=== PATIENT | female | born 1930 | race Caucasian/White ===

== ENCOUNTER 2016-07-25 13:30 | Inpatient (IN) | payer MEDICARE, MEDICAID ==
[~2016-07-25] VITALS: Ht 157.5 cm; Wt 71.2 kg
--- NOTE | ~2016-07-25 | DS ---
PATIENT'S NAME: JUANA BOSE [facility] AGE: 85 Y [address] ROOM: [id number] [place], [place] [address] LOCATION: [facility] ADMIT DATE: 07/25/2016 Discharge Summary DISCHARGE DATE: 07/30/2016 FAMILY PHYSICIAN: Neo Gallo MD ATTENDING PHYSICIAN: Luis Vargas HOSPITAL COURSE: Ms. Bose was admitted with a left hip displaced femoral neck fracture. She was medically optimized, taken to the operating room, and had a hemiarthroplasty. No complications. Preoperatively, was noted to have a foot drop. There was some talk that maybe she had some weakness to the foot prior to surgery. 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 The sciatic nerve was identified during the procedure and protected throughout the procedure. Was fitted with an ankle-foot orthosis. Wound was intact. Mobilized, but made slow progress. Ready for transfer to [facility] bed on the . Regular diet. Activity, up with full weight bear with hip precautions. Wear her ankle-foot orthosis when up. Mepilex dressing change once a week. Discharge medicines include: 1. Cordarone. 2. Toprol. 3. Norvasc. 4. Coumadin. 5. Lovenox until the Coumadin is therapeutic. 6. Levothroid. 7. Levalbuterol. 8. Tylenol. 9. Marana. 10. Dulcolax. 11. Milk of magnesia. 12. Multivitamin. 13. Aspirin. 14. Oyster shell. 15. Calcium. 16. Symbicort. 17. Vitamin D3. 18. Hyzaar. Scheduled to follow up with Dr. Vargas on August 18, 2016, at 1:15 p.m. X-rays have been ordered at the [facility] [place] at noon, AP of the pelvis. Dr. Gallo, her family physician, will manage her transition back to Coumadin and will stop the Lovenox when the Coumadin is therapeutic. LUIS VARGAS MD PATIENT'S NAME: JUANA BOSE [facility] AGE: 85 Y [address] ROOM: [address] [address] LOCATION: [facility] ADMIT DATE: 07/25/2016 Discharge Summary DISCHARGE DATE: 07/30/2016 FAMILY PHYSICIAN: Neo Gallo MD ATTENDING PHYSICIAN: Luis Vargas DPM/ling /[id number] d: 07/30/16 1726 t: 08/03/16 2149, DISCHARGE SUMMARY
--- NOTE | ~2016-07-25 | OR ---
PATIENT'S NAME: JUANA BOSE [facility] AGE: 85 Y [address] ROOM: [address] [address] LOCATION: [facility] ADMIT DATE: 07/25/2016 OR/Procedure Report DISCHARGE DATE: FAMILY PHYSICIAN: PHYSICIAN, UNKNOWN ATTENDING PHYSICIAN: Luis Rebolledo SURGEON: Luis Rebolledo MD REVIT DRAFTER: DATE OF PROCEDURE: 07/26/2016 DIAGNOSIS: Left hip displaced femoral neck fracture. PROCEDURE: Left hip hemiarthroplasty. ANESTHESIA: General. INDICATION: Ms. Bose is an 85-year-old white female on Coumadin, fall at home, left hip displaced femoral neck fracture, known osteoporosis, was medically optimized and anticoagulation was reversed, taken to the operating room. When stabilized, was having no symptoms about the hip prior to the injury, minimal osteoarthritic changes. Risks, benefits, and alternatives have all been discussed. DESCRIPTION OF PROCEDURE: Ms Bose was taken to the operating room, 2 g Kefzol given intravenously for prophylaxis. General anesthetic via endotracheal tube. Turned to the right lateral decubitus position on the PEG board. All pressure points were carefully checked and padded. The left hip and lower extremity were prepared with ChloraPrep and draped sterilely. A 10 cm posterior lateral incision was made. Dissection through subcutaneous tissue to the fascia. Iliotibial band was opened over the greater trochanter. Interval in the gluteus muscle was identified and divided through the gluteal fascia. Gluteal muscles were retracted. The piriformis and short rotators were identified, elevated from the capsule. Each was divided and tagged. Retracted to protect the sciatic nerve. Capsule was T'd. Femoral neck fracture hematoma was drained. Femoral neck was cut 1 cm above the lesser trochanter, 45-degree angle to the shaft and 15 degrees of anteversion. Head was removed from the acetabulum, minimal osteoarthritic changes, sized to a 43. Cookie cutter was used for a lateral entry point. The canal finder was advanced. Using the Angeles press-fit system, broaches were advanced to the 12. Standard length neck with a 43 mm head was a good fit, very stable. Trial components removed. Permanent implants after irrigation were inserted. A Angeles 12 stem standard offset, standard neck with 43 mm head. Hip was located, stable, well-balanced, capsule closed with #1 Ethibond, gluteal fascia closed with #1 Vicryl. Subcutaneous tissues closed with multiple layers, first 0 Vicryl, then 2-0 Vicryl, and then doug. Mepilex dressing was placed. Procedure was done without complication. PATIENT'S NAME: JUANA BOSE [facility] AGE: 85 Y [address] ROOM: [place] [address] LOCATION: [facility] ADMIT DATE: 07/25/2016 OR/Procedure Report DISCHARGE DATE: FAMILY PHYSICIAN: PHYSICIAN, UNKNOWN ATTENDING PHYSICIAN: Luis Rebolledo ESTIMATED BLOOD LOSS: From the procedure was 200 mL. FINDINGS: Very osteoporotic bone. Since the bone was markedly osteoporotic, sample was sent to rule out any unrecognized cancer. LUIS REBOLLEDO MD DPM/modl /[id number] d: 07/26/16 1720 t: 07/28/16 1656, OPERATIVE SUMMARY
--- NOTE | ~2016-07-25 | CON ---
[facility] NAME: [facility] AGE: 85 Y [address] ROOM: [place] [address] LOCATION: [facility] ADMIT DATE: 07/25/2016 Consultation DISCHARGE DATE: FAMILY PHYSICIAN: PHYSICIAN, UNKNOWN ATTENDING PHYSICIAN: Luis Rebolledo CHIEF COMPLAINT: Left hip pain status post mechanical fall. HISTORY OF PRESENT ILLNESS: This is an 85-year-old female who is a resident of assisted living facility. The story is that the patient usually ambulates with a walker, but today around 10:30 a.m. when her daughter came by to pick her up, she forgot to use a walker while she was walking on the standing position, her daughter was speaking to her, so she turned her head to look at her and then she lost her balance and she fell down on the ground. She fell from the standing position and she sat on the ground. After the fall, the patient complained of left hip and back pain. The daughter called the ambulance. The patient was brought to the emergency room at [facility] and over there, the patient had imaging test done with x-ray showed left hip comminuted and mildly displaced fracture of the left hip. The patient was transferred here for a surgical care. The patient at baseline is an active female. Her METS score is more than 4. The patient usually ambulates with walker and she denies any chest pain or shortness of breath, both at exertion or at rest. The patient has never had myocardial infarction or had a heart failure either. She also denies any palpitation or chest pain or shortness of breath or cough. REVIEW OF SYSTEMS: As mentioned in the history of present illness. All other systems were reviewed and that were negative except those mentioned in the history of present illness. PAST MEDICAL HISTORY: According to the patient by looking at her medication: 1. Hypothyroidism. 2. Hypertension. 3. Osteoarthritis. 4. 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 5. Paroxysmal atrial fibrillation, on Coumadin, beta amy and amiodarone. ALLERGIES: NO KNOWN DRUG ALLERGIES ACCORDING TO THE PATIENT. HOME MEDICATIONS: PATIENT'S NAME: [facility] AGE: 85 Y [address] ROOM: [place] [address] LOCATION: [facility] ADMIT DATE: 07/25/2016 Consultation DISCHARGE DATE: FAMILY PHYSICIAN: PHYSICIAN, UNKNOWN ATTENDING PHYSICIAN: Luis Rebolledo 1. Levothyroxine 100 mg p.o. daily. 2. Losartan and hydrochlorothiazide 100/12.5 mg one tablet p.o. daily. 3. Toprol-XL 50 mg p.o. daily. 4. Multivitamin 1 tablet p.o. daily. 5. MiraLax 17 g p.o. daily. 6. Artificial Tears 1 drop each eye 3 times daily. 7. Coumadin 4 mg on Thursday, Thursday, , and Thursday. 8. Tylenol 650 mg p.o. every 6 hours p.r.n. for pain or fever. 9. Amiodarone 100 mg p.o. daily. 10. Amlodipine 5 mg p.o. daily. 11. Aspirin 81 mg p.o. daily. 12. Symbicort 160/4.5 mcg 2 puffs inhalation twice daily. 13. Calcium carbonate and vitamin D3 three tablets p.o. b.i.d. 14. Vitamin D3 1000 units p.o. daily. 15. Coumadin 2 mg p.o. on Thursday, Thursday, and Thursday. SOCIAL HISTORY: The patient denies any alcohol, cigarette or illegal drug use. PAST SURGICAL HISTORY: 1. Status post right hammertoe surgery in the past. 2. Status post appendectomy. 3. Status post tubal ligation bilaterally. FAMILY HISTORY: Mother has had asthma and from old age that she could not remember from what cause. Father had diabetes and also had a stroke and also at old age that from what cause that she could not remember. PHYSICAL EXAMINATION: VITAL SIGNS: At the time of my dictation; temperature 98.3, heart rate 64, respirations 16, blood pressure 140/99, saturation 94% on 2 L nasal cannula. GENERAL APPEARANCE: Alert and oriented x3, in no acute distress. HEENT: Pupils equally round and reactive to light. Extraocular muscles intact. Anicteric sclerae. Nasal turbinates are normal bilaterally. Moist oral mucosa. NECK: No JVD. CARDIOVASCULAR: Regular rate and rhythm. No murmur. No rubs. No gallops. RESPIRATORY: No rhonchi. No wheezing. No rales. No crackles. Lungs are clear to auscultation. ABDOMEN: Soft, nontender, nondistended, bowel sounds are present, no hepatosplenomegaly, nondistended, and soft. EXTREMITIES: +1 bilateral trace pitting edema which is chronic for the patient unchanged. Dorsalis pedis pulse and posterior tibialis pulses +2 bilaterally present. PATIENT'S NAME: JUANA BOSE [facility] AGE: 85 Y [address] ROOM: [place] [address] LOCATION: [facility] [facility] ADMIT DATE: 07/25/2016 Consultation DISCHARGE DATE: FAMILY PHYSICIAN: PHYSICIAN, UNKNOWN ATTENDING PHYSICIAN: Luis Rebolledo NEUROLOGIC: Grossly nonfocal. Sensation intact. SKIN: No ulcer. No rash. No cyanosis. LABORATORY DATA: CPK 32, troponin less than 0.04. ProBNP 548, white blood cells 13.5, hemoglobin 13.3, hematocrit 38.8, MCV 96.5, platelet 228, glucose 136, BUN 10, creatinine 0.8. Sodium 137, potassium 3.7, chloride 100, CO2 25, calcium 8.6, magnesium 1.8, GFR more than 60, albumin 3.3, phosphorus 3.2. INR 1.6. Urinalysis negative for UTI. CK-MB 0.6. Prealbumin 27. IMAGES: Chest x-ray on admission, the official reading is pending based on my review, no obvious gross abnormality. EKG on admission done on 07/25/2016 at 1736 hours showed sinus rhythm, heart rate 64, FL 177 milliseconds, QRS 103 milliseconds, QTc 374 milliseconds. No acute ischemic changes. No T-wave inversion. X-ray of the hip from the outside facility based on their report showed left comminuted mildly displaced fracture of the femoral neck. ASSESSMENT AND PLAN: 1. Regarding her left hip comminuted and displaced femoral neck fracture status post fall. Defer to orthopedic surgery. 2. Regarding her preoperative evaluation of noncardiac surgery. Orthopedic surgery is considered as an intermediate risk surgery. Currently from the guideline of the preoperative evaluation for noncardiac surgery, the patient does not require additional study at the moment. However, given that the patient has probable history of asthma, but the patient was not sure, I will give her nebulization with the Xopenex plus Atrovent q.6 hours while awake and Atrovent q.2 hours p.r.n. titrate by RT. I will also use incentive spirometry 10 times per hour while awake. 3. For her history of paroxysmal atrial fibrillation. Currently in sinus rhythm. The INR is 1.6. The goal will be to keep it below 1.5 for the surgery. Therefore, I will give her 1 dose of p.o. vitamin K and also 1 unit of fresh frozen plasma right now. The patient already took the Coumadin this morning of 2 mg that is why I am giving her the vitamin K to reverse it. I will check her INR again in the morning. If she would require more correction, we can give her fresh frozen plasma at that time as well. As mentioned before per guideline, there is no active contraindication currently to prevent her from undergoing the orthopedic Surgery. However, given her age and her history of probable asthma, I explained to the family that she is at moderate to high pulmonary postop PATIENT'S NAME: JUANA BOSE [facility] AGE: 85 Y [address] ROOM: [address] [address] LOCATION: [facility] [place] ADMIT DATE: 07/25/2016 Consultation DISCHARGE DATE: FAMILY PHYSICIAN: PHYSICIAN, UNKNOWN ATTENDING PHYSICIAN: Luis Rebolledo complication including that she might have a hard time to be extubated and she may remain intubated if necessary for a few days until she can be extubated. I will continue right now with nebulization and also encourage incentive spirometry. Currently, her lungs are clear. Family understands of potential complication. No need for antibiotics. I will also keep her potassium more than 4 and magnesium more than 2 given her history of paroxysmal atrial fibrillation. I will replace with one dose of potassium chloride 40 mEq and also one dose of IV magnesium 1 g. N.p.o. after midnight and IV fluids running at D5 normal saline at 50 mL/h for maintenance. Pain control with IV morphine p.r.n. and p.o. [place] p.r.n. and IV Dilaudid p.r.n. I will also check a TSH to see her levothyroxine dose should be adjusted or not. Further plan depends on clinical course. 4. Continue telemetry monitoring. Continue amiodarone. Hold the Coumadin obviously in anticipation for surgery. 5. Regarding her hypothyroidism. We will check a TSH to see if her home dose of levothyroxine should be adjusted. 6. Regarding her hypertension. I will hold the blood pressure medication for now in anticipation for surgery to prevent hypotension. I will continue the amiodarone for her history of paroxysmal atrial fibrillation. Time spent in care on the day of consultation 45 minutes including chart review, interviewing the patient, examining the patient, addressing all the question and concern that the patient had, I also went over the plan of care and answered all the questions that the family member had. Half of the total time spent was in counseling and going over the plan of care with the patient and her family members. The other half of the total time spent was in patient care, in interview, examination, and the chart review. MD DIGNA WOLFF/ling /[id number] d: 07/26/16 0224 t: 08/05/16 0659, CONSULTATION REPORT
--- NOTE | ~2016-07-25 | HP ---
PATIENT'S NAME: JUICE [facility] AGE: 85 Y [address] ROOM: [place] [id number] LOCATION: [facility] [place] ADMIT DATE: 07/25/2016 History & Physical DISCHARGE DATE: FAMILY PHYSICIAN: PHYSICIAN, UNKNOWN ATTENDING PHYSICIAN: Rima Rebolledo DATE OF SERVICE: 07/25/2016 DATE AND TIME OF EVALUATION: 07/25/2016 at 5:30 p.m. HISTORY OF PRESENT ILLNESS: Ms. Negro is an 85-year-old, white female. She fell this morning. No syncope, injured her left hip, found to have a left hip fracture. Denies any other injury. Known to have osteoporosis. MEDICATIONS: She is on Coumadin. See list for other medications. ALLERGIES: NONE KNOWN. PAST MEDICAL HISTORY: Strokes and osteoporosis. Does not smoke. Does not drink alcohol. REVIEW OF SYSTEMS: Unremarkable. FAMILY MEDICAL HISTORY: Unremarkable. PERSONAL SOCIAL HISTORY: She lives in assisted living with her . She is a limited ambulator and walks with a walker. PHYSICAL EXAMINATION: GENERAL: Minimal distress. NECK: Nontender. BACK: Nontender. PELVIS: Stable. HEENT: Hears and sees. Pharynx clear. HEART: Regular rate and rhythm. LUNGS: Takes in a deep breath without difficulty. ABDOMEN: Soft, nontender. EXTREMITIES: Left hip, painful motion. Left leg is short and rotated. Left PATIENT'S NAME: JUICE [facility]ES [facility] AGE: 85 Y [address] ROOM: [place] [id number] LOCATION: [facility] [place] ADMIT DATE: 07/25/2016 History & Physical DISCHARGE DATE: FAMILY PHYSICIAN: PHYSICIAN, UNKNOWN ATTENDING PHYSICIAN: Rima Rebolledo leg is neurovascularly intact. IMAGING STUDIES: X-rays of the pelvis and left hip show a displaced left hip femoral neck fracture. Minimal osteoarthritis. ASSESSMENT AND PLAN: Correct coags, medically optimized, and then left hip hemiarthroplasty. Risks, benefits, and alternatives have been discussed with the patient and the family. RIMA REBOLLEDO MD DPM/ling /[id number] D: [id number] T: [id number] HISTORY & PHYSICAL
[2016-07-25] MEDS ORDERED: LEVOTHROID (S100 MCG PO (13:57)
[2016-07-25] MEDS ORDERED: MULTIPLE VITAM1 EACH PO (13:57)
[2016-07-25] MEDS ORDERED: COUMADIN 4MG **4 MG PO (14:00)
[2016-07-25] MEDS ORDERED: ASPIRIN LO-DOSE81 MG PO (14:01)
[2016-07-25] MEDS ORDERED: COUMADIN ** 9/62 MG PO (14:01)
[2016-07-25] MEDS ORDERED: CORDARONE,PACE200 MG PO (14:02)
[2016-07-25] MEDS ORDERED: TOPROL XL 5050 MG PO (14:05)
[2016-07-25] MEDS ORDERED: OYSTER SHELL C1 EACH PO (14:06)
[2016-07-25] MEDS ORDERED: NORVASC5 MG PO (14:06)
[2016-07-25] MEDS ORDERED: VITAMIN D1000 UNIT PO (14:07)
[2016-07-25] MEDS ORDERED: SYMBICORT 16010.2 GM INH (14:07)
[2016-07-25] MEDS ORDERED: HYZAAR 100-12.1 EACH PO (14:08)
[2016-07-25] MEDS ORDERED: MIRALAX PO527 GM/BOT PO (14:08)
[2016-07-25] MEDS ORDERED: ARTIFICIAL TEAR15 ML OPHTH (14:09)
[2016-07-25] MEDS ORDERED: TYLENOL325 MG PO (14:12)
--- NOTE | 2016-07-25 15:06 | NUR ---
Pt is 85 yo female admitted this afternoon after going on a drive with her daughter and her . they returned to the assisted living, patient had her walker and was going up the drive back into the building. She turned to talk to her daughter and the wheel of the walker caught on some uneven cement and caused patient to fall, fracturing her left hip. She was taken to the [facility] via ambulance and is transferred here via ambulance for Dr. GIL Rebolledo. patient was a resident of [facility] before she moved to [facility] within the last year, her lives there as well. She is depressed with living there as she doesn't really know anyone in the community. Pt has IV infusing in right antecubital space without erythema or edema noted at site. Pierre is patent with clear light yellow drainage noted. Education is given as documented. patient and family deny needs. Pneumatics are on right foot only at this time. call light is within reach. patient denies needs. Report is given to ALDO Huntley.
--- NOTE | 2016-07-25 18:00 | NUR ---
Significant Event:patient fell "right on my butt" in the parking lot of assisted living, left elbow bruised and abraded. Patient alert and oriented. Denies pain much. NPO. Pierre to dependent drainage-yellow clear urine, urine sent to lab. 1200 out urine. 2+ pulses bilat feet. IV to right A/C. Follow up:
[2016-07-25 18:39] LABS: BILIRUBIN URINE NEGATIVE (NEGATIVE); BLOOD URINE 50 /UL (NEGATIVE); COLOR URINE YELLOW (YELLOW); GLUCOSE URINE NEGATIVE (NEGATIVE); KETONE URINE NEGATIVE (NEGATIVE); LEUKOCYTES URINE NEGATIVE /UL (NEGATIVE); NITRITE URINE NEGATIVE (NEGATIVE); PROTEIN URINE NEGATIVE (NEGATIVE); SPEC GRAVITY URINE 1.015 (1.003-1.035); UROBILINOGEN URINE NORMAL (NORMAL)
[2016-07-25 18:41] LABS: TURBIDITY URINE CLEAR (CLEAR)
[2016-07-25 18:51] LABS: BACTERIA URINE FEW (NEGATIVE); EPITHELIAL URINE 0-2 #/HPF (NEGATIVE); MUCUS URINE 1+ (NEGATIVE)
[2016-07-25 19:12] LABS: BASOPHIL % 0.2 %; EOSINOPHIL # 0.1 K/uL (0.0-0.5); EOSINOPHIL % 0.5 %; HEMATOCRIT 38.8 % (30.0-46.0); HEMOGLOBIN 13.3 g/dL (10.0-15.0); IMMATURE GRANULOCYTE # 0.1 K/uL (0.0-0.3); IMMATURE GRANULOCYTE % 0.5 %; LYMPHOCYTE # 0.8 K/uL (0.8-4.0); MCH 33.1 pg (27.0-34.0); MCHC 34.3 gm/dL (32.0-36.5); MCV 96.5 fl (83.0-98.0); MONOCYTE # 0.8 K/uL (0.0-1.0); MONOCYTE % 5.8 %; MPV 8.7 fl (9.4-12.4); NEUTROPHIL # (ANC) 11.7 K/uL (1.8-7.8); NRBC % 0 /100WBC (0-0.00); PLATELET COUNT 228 K/uL (150-450); RBC 4.02 M/uL (3.00-5.00); RDW-CV 13.5 % (11.9-14.6); WBC 13.5 K/uL (4.0-11.0)
[2016-07-25 19:21] LABS: PROTIME 16.9 SECONDS (9.8-11.4)
[2016-07-25 19:26] LABS: ALBUMIN 3.3 gm/dL (3.5-5.0); ANION GAP 15.7 (10.0-19.0); BLOOD UREA NITROGEN 10 mg/dL (6-24); CALCIUM 8.6 mg/dL (8.5-10.5); CHLORIDE 100 mMol/L (96-110); CO2 25 mMol/L (22-32); CREATININE 0.8 mg/dL (0.5-1.1); ESTIMATED GFR (MDRD EQUATION) > 60; PHOSPHORUS 3.2 mg/dL (2.5-4.9); POTASSIUM 3.7 mMol/L (3.7-5.1); SODIUM 137 mMol/L (135-145)
[2016-07-25 21:00] LABS: MAGNESIUM 1.8 mg/dL (1.8-2.6)
--- NOTE | 2016-07-26 04:18 | NUR ---
Patient alert and oriented x3, very pleasant and cooperative, has left hip fracture to have surgery today leaving the floor at 0700 if cleared for surgery, csm with in normal limits, had a unit of plasma this shift tolerated well, has been NPO since midnight, ice to left hip, taking Narco for pain control
[2016-07-26 04:48] LABS: INR - (THERAPEUTIC) 1.4 (0.92-1.07); PROTIME 14.7 SECONDS (9.8-11.4)
[2016-07-26 04:54] LABS: ANION GAP 10.3 (10.0-19.0); CALCIUM 8.1 mg/dL (8.5-10.5); CREATININE 0.9 mg/dL (0.5-1.1); POTASSIUM 4.3 mMol/L (3.7-5.1)
--- NOTE | 2016-07-26 10:21 | NUR ---
pt down to pre-op at 0715.
--- NOTE | 2016-07-26 16:41 | NUR ---
Significant Event: pt alert and oriented. retruned to the floor at 1130 from pacu. cont with post op vitalslast one at 1845. ancef given at 1600. norco given at 1600. sawyer cath intact. rates pain at 3. pt is wbat. 02 down to 1 lpm/nc. family in the room with pt. ice to hip mepelix dessing intact. Follow up:
[2016-07-27 04:36] LABS: HEMOGLOBIN 10.2 g/dL (10.0-15.0)
[2016-07-27 04:38] LABS: HEMATOCRIT 30.7 % (30.0-46.0)
--- NOTE | 2016-07-27 04:38 | NUR ---
Significant Event: Dressing is clean, dry and intact. CSM WNL. Has a sawyer catheter. On 3 L of oxygen nasal cannula. [place] at 0323. On telemetry with no calls. Follow up:
[2016-07-27 04:43] LABS: INR - (THERAPEUTIC) 1.14 (0.92-1.07)
--- NOTE | 2016-07-27 16:13 | NUR ---
Significant Event: pt alert and oriented. forgetful at intervals. up in the recliner this shift with physical therapy 2 assist hard transfer. doesnt move lt leg very well. norco for pain this am at 1020. refused this afternoon. sawyer remains intact small output 325cc. encouraged po intact. saline locked this am. drank 1200 . family in the room this afternoon Follow up:
--- NOTE | 2016-07-28 04:43 | NUR ---
Significant Event: Patient was on 3 L of oxygen nasal cannula, but now on 4 L. Outputed 275 out of sawyer catheter. Abdomen firm, have given MOM, prune juice and suppository and had liquid bowel movement and passing gas. MD notified of everything stated above. Dressing is clean, dry and intact. Patient has mininal dorsiflexion to L) foot and can plantarflex when foot lifted. MD notified. [place] at 2041. Denied pain . Follow up:
[2016-07-28 05:00] LABS: BASOPHIL % 0.2 %; EOSINOPHIL # 0.1 K/uL (0.0-0.5); EOSINOPHIL % 0.8 %; HEMATOCRIT 29.1 % (30.0-46.0); HEMOGLOBIN 9.7 g/dL (10.0-15.0); IMMATURE GRANULOCYTE # 0.1 K/uL (0.0-0.3); LYMPHOCYTE # 0.5 K/uL (0.8-4.0); MCHC 33.3 gm/dL (32.0-36.5); MONOCYTE # 0.8 K/uL (0.0-1.0); MPV 9.5 fl (9.4-12.4); NEUTROPHIL # (ANC) 11.1 K/uL (1.8-7.8); NRBC % 0 /100WBC (0-0.00); RDW-CV 13.6 % (11.9-14.6); WBC 12.6 K/uL (4.0-11.0)
[2016-07-28 05:07] LABS: INR - (THERAPEUTIC) 1.08 (0.92-1.07); PROTIME 11.4 SECONDS (9.8-11.4)
[2016-07-28 05:17] LABS: ANION GAP 13.8 (10.0-19.0); POTASSIUM 3.8 mMol/L (3.7-5.1)
[2016-07-28 05:20] LABS: PLATELET COUNT 127 K/uL (150-450); RBC 2.94 M/uL (3.00-5.00)
--- NOTE | 2016-07-28 16:49 | NUR ---
Significant Event: Repositions in bed with two assist. Up to chair with three assist, walker and gaitbelt. Patient hyperextends R) knee with transfers. Nursing to use full lift per physical therapy recomendations. Plantar flexion remains moderate, slight dorsi flex, orders for AFO boot to R) foot. Pierre patent with 500mL out. Bumex 2mg given at 1600. Remains on 4L O2 per nasal cannula. Denies pain, refuses offers of pain medication. Follow up:
--- NOTE | 2016-07-29 04:40 | NUR ---
Significant Event: Dressing has old drainage. [place] at 2015. Denies pain. Passed on from day shift to used full lift or 2-3 heavy assist. Pierre catheter. On 4 L of oxygen nasal cannula. AFO boot to L) foot. Plantarflexes, but minimal to no dorsiflexion. Follow up:
[2016-07-29 05:38] LABS: BASOPHIL % 0.1 %; EOSINOPHIL # 0.1 K/uL (0.0-0.5); EOSINOPHIL % 1.5 %; HEMATOCRIT 25.9 % (30.0-46.0); IMMATURE GRANULOCYTE # 0.1 K/uL (0.0-0.3); LYMPHOCYTE # 0.6 K/uL (0.8-4.0); LYMPHOCYTE % 6.7 %; MCH 33.7 pg (27.0-34.0); MCHC 34.7 gm/dL (32.0-36.5); MONOCYTE # 0.6 K/uL (0.0-1.0); MONOCYTE % 6.5 %; MPV 9.7 fl (9.4-12.4); NEUTROPHIL # (ANC) 7.6 K/uL (1.8-7.8); NEUTROPHIL % 84.2 %; NRBC % 0 /100WBC (0-0.00); PLATELET COUNT 120 K/uL (150-450); RBC 2.67 M/uL (3.00-5.00); RDW-CV 13.6 % (11.9-14.6); WBC 9.1 K/uL (4.0-11.0)
[2016-07-29 05:52] LABS: INR - (THERAPEUTIC) 1.06 (0.92-1.07); PROTIME 11.1 SECONDS (9.8-11.4)
[2016-07-29 06:01] LABS: ANION GAP 12.6 (10.0-19.0); CALCIUM 7.7 mg/dL (8.5-10.5); CREATININE 1.1 mg/dL (0.5-1.1); POTASSIUM 3.6 mMol/L (3.7-5.1)
[2016-07-29 06:06] LABS: PHOSPHORUS 1.4 mg/dL (2.5-4.9)
--- NOTE | 2016-07-29 09:30 | NUR ---
Mary Bates informed me patient should be ready for discharge tomorrow. 1240 Introduced self/role to patient, her and children. Their first choice for placement if [facility] then the swing. Explained how Medicare worked. Talked about transportation, prefer ambulance. Mentioned medical necessity and if we felt appropriate to go by ambulance we would fill out a form and submit to Medicare however there was no guarantee it would be covered. They voiced understanding. Patient has Medicare and Medicaid. 1300 Left a message for Maria Guadalupe the exceptional children teacher assistant DON at [facility]. Faxed referral. 1415 called [facility] and the RN who answer stated Maria Guadalupe would be calling me back very shortly. 1430 Maria Guadalupe called and they are full, can't accept. Called [facility] but Radha already go for the day. Left a voicemail. Called her cell phone #[phone] and updated. Faxed referral, she will look at it tomorrow. 1445 Updated patient. 1530 Called Tanya with EMS and set up a tentative discharge time of 1100 via ambulance. Ambulance cert and orders placed on the chart. 1550 Called and updated daughter Enid. Called Mary Bates. Unsure of who accepting doctor will be at this point.
--- NOTE | 2016-07-29 16:51 | NUR ---
Significant Event: Pt is a/o. Cooperative with cares. SL L) AC. Tele. Mepilex dressing with old drainage noted. CSM WNL - except has very little dorsiflex L) foot. Taking norco for adequate pain control. 2 assist to commode/chair. WBAT. O2 3L. Needs AFO L) foot when OOB. Transferred to 3N for continued care. Follow up:
--- NOTE | 2016-07-30 05:12 | NUR ---
Patient alert and oriented x3, very pleasant and cooperative, remains on 2L of oxygen, sawyer catheter removed at 0500, csm with in normal limits, dressing was changed at begining of the shift, has had several loose stools due to laxatives, patient plans to transfer to [facility] at 11am via ambulance
[2016-07-30 06:27] LABS: INR - (THERAPEUTIC) 1.19 (0.92-1.07); PROTIME 12.5 SECONDS (9.8-11.4)
[2016-07-30 06:34] LABS: ANION GAP 11.3 (10.0-19.0); BLOOD UREA NITROGEN 20 mg/dL (6-24); CALCIUM 7.5 mg/dL (8.5-10.5); CHLORIDE 102 mMol/L (96-110); CO2 27 mMol/L (22-32); CREATININE 0.7 mg/dL (0.5-1.1); POTASSIUM 4.3 mMol/L (3.7-5.1); SODIUM 136 mMol/L (135-145)
[2016-07-30 06:45] LABS: ALBUMIN 1.9 gm/dL (3.5-5.0); ESTIMATED GFR (MDRD EQUATION) > 60; PHOSPHORUS 1.8 mg/dL (2.5-4.9)
--- NOTE | 2016-07-30 09:05 | NUR ---
Called [facility] and spoke to nurse Hardwick due to Radha being off today. Have not looked at referral but will pass onto the doctors and get back to me. 09 Notified Rachael with EMS that transport may not happen at 1100. 1025 Selina called back and Dr Yusuf will accept today. Let charge Tanya know, called Mary Bates, called Dr Rebolledo and gave Dr Yusuf's number to him #[phone], called Dr Corral - he has seen patient and doesn't need to see her again, updated patient and her nurse Dawood. Attempted to call patients daughter Enid #[phone] but went straight to voicemail but not able to leave a message due to voicemail not being set up. Called Enid at work but not there #[phone] but got home #[phone], no answer there. Attempted cell again but no answer. 1100 called [facility] patient resides and daughter Enid happened to be there so updated on discharge time of 1130 today. Orders faxed and called Selina with discharge time. Patients nurse Seay called nurse marcio.
--- NOTE | 2016-07-30 10:36 | NUR ---
Pt came in on 07/25/16.Pt fell and had it repaired. Pt is AOx3. Pt both continent and incontinent. Pierre removed this morning, pt has voided at 1020. , mixed with stool so unable to measure. Pt having loose stools. Laxatives held. Pt on RA now, but required 2L over night. Pt has foot drop to left foot, pt has boot. If problems with brace/boot [employer] is the company to notify. IVs removed. Pt's last pain pill was a norco at 1028. Pt's dressing on hip changed today to a mepilex. Pt is a 2-3 assist pivot to commode. Pedal pulses weak but present. Pt has glasses. Suspected pneumonia, pt on po levaquin. Pt had synthroid, levaquin, florastor, norco, and lovenox today.
== END 2016-07-30 11:50 | disposition swing bed (61) | DRG 469 ==
LOC: GMSU 13:34 → G3N 13:34
PROVIDERS: Family Medicine; Internal Medicine; Physician Assistant; ADMIT Orthopaedic Surgery
DX: S72.002A Fracture of unspecified part of neck of left femur, initial encounter for closed fracture (principal); J96.01 Acute respiratory failure with hypoxia; W18.30XA Fall on same level, unspecified, initial encounter; E03.9 Hypothyroidism, unspecified; I10 Essential (primary) hypertension; I48.0 Paroxysmal atrial fibrillation; J45.909 Unspecified asthma, uncomplicated; M19.90 Unspecified osteoarthritis, unspecified site; M81.0 Age-related osteoporosis without current pathological fracture; Z86.73 Personal history of transient ischemic attack (TIA), and cerebral infarction without residual deficits
CPT/HCPCS: C1776; J0690; J1170; J1650; J2001; J3475; J7030; J7042; J7050; J7120; J7612; P9017; P9045

== ENCOUNTER → 2016-07-30 | Outpatient (CLI) | payer MEDICARE, MEDICAID ==
[~2016-07-30] MED LIST: ARTIFICIAL TEAR15 ML OPHTH; ASPIRIN LO-DOSE81 MG PO; CORDARONE,PACE200 MG PO; COUMADIN ** 9/62 MG PO; COUMADIN 4MG **4 MG PO; HYZAAR 100-12.1 EACH PO; LEVOTHROID (S100 MCG PO; MIRALAX PO527 GM/BOT PO; MULTIPLE VITAM1 EACH PO; NORVASC5 MG PO; OYSTER SHELL C1 EACH PO; SYMBICORT 16010.2 GM INH; TOPROL XL 5050 MG PO; TYLENOL325 MG PO; VITAMIN D1000 UNIT PO
== END | disposition disaster alternative care site (69) ==
LOC: GAMB 11:50
DX: S72.002A Fracture of unspecified part of neck of left femur, initial encounter for closed fracture (principal); M25.552 Pain in left hip; E03.9 Hypothyroidism, unspecified; I10 Essential (primary) hypertension; M19.90 Unspecified osteoarthritis, unspecified site; I63.9 Cerebral infarction, unspecified; I48.2 Chronic atrial fibrillation; Z79.01 Long term (current) use of anticoagulants; Z79.82 Long term (current) use of aspirin; Z79.899 Other long term (current) drug therapy; Z98.890 Other specified postprocedural states; W01.0XXA Fall on same level from slipping, tripping and stumbling without subsequent striking against object, initial encounter
CPT/HCPCS: A0422; A0425; A0428

== ENCOUNTER → 2016-08-18 | Outpatient (CLI) | payer MEDICARE, MEDICAID | END | disposition disaster alternative care site (69) | LOC: GRAD 11:33 | DX: Z47.89 Encounter for other orthopedic aftercare (principal); S72.002D Fracture of unspecified part of neck of left femur, subsequent encounter for closed fracture with routine healing; Z96.642 Presence of left artificial hip joint; X58.XXXD Exposure to other specified factors, subsequent encounter ==